=== PATIENT | male | born 1960 | race Caucasian/White ===

== ENCOUNTER → 2021-06-17 | Outpatient (CLI) | payer OTHER | LOC: COL.RAD 09:06 | DX: Z02.71 Encounter for disability determination (principal); M51.36 Other intervertebral disc degeneration, lumbar region ==

== ENCOUNTER → 2022-08-25 | Outpatient (CLI) | payer OTHER | LOC: COL.RAD 08:29 | DX: M17.12 Unilateral primary osteoarthritis, left knee (principal) ==